=== PATIENT | female | born 1935 | race Caucasian/White ===

== ENCOUNTER 2020-06-12 15:04 | Outpatient (CLI) | payer MEDICARE ==
[2020-06-12 16:45] LABS: Hemoglobin 14.3 g/dL (12.0-15.5)
[2020-06-12 16:55] LABS: Anion Gap 11 mmol/L (10-20); BUN (Urea Nitrogen) 27 mg/dL (9.8-20.1); Calc. Creatinine Clearance 0 mL/min (70-130); Calcium 9.7 mg/dL (7.8-10.44); Carbon Dioxide 30 mmol/L (23-31); Chloride 102 mmol/L (98-107); Glucose 110 mg/dL (83-110); Potassium 3.9 mmol/L (3.5-5.1); Sodium 139 mmol/L (136-145)
[2020-06-12 16:59] LABS: Prothrombin Time 10.9 sec (9.5-12.1)
[2020-06-13 01:50] LABS: SARS-CoV-2 PCR by NAA Not Detected (NotDetected)
== END 2020-06-12 15:05 | disposition home or self-care (01) ==
LOC: CSHLAB 15:04
PROVIDERS: ATTEND Specialist
DX: Z01.812 Encounter for preprocedural laboratory examination (principal); Z20.822 Contact with and (suspected) exposure to COVID-19
CPT/HCPCS: 80048; 85014; 85018; 85610; 87635; 93005; 93010; U0003; U0005

== ENCOUNTER → 2020-06-17 | Day surgery (SDC) | payer MEDICARE ==
[~2020-06-17] MED LIST: CEFAZOLIN 1 GM VIAL ONE; Fentanyl 100 MCG/2 ML VIAL ONE; Gentamicin 80 MG/2 ML VIAL ONE; HYDROcodone/Acetaminophen 5/325 mg Tablet ONE; Lidocaine 1% (PF) 30 ML VIAL ONE; Midazolam HCl 2 mg/2 ml Vial ONE
== END ==
LOC: CSHSDC 06:22
PROVIDERS: ATTEND Specialist
DX: I49.5 Sick sinus syndrome (principal); R06.02 Shortness of breath
CPT/HCPCS: 33208; 71045; C1785; C1898 ×2; 99152; 99153; J0690; J1580; J2001; J2250; J3010

== ENCOUNTER 2021-08-28 14:17 | Observation (INO) | payer MEDICARE, OTHER ==
[2021-08-28 15:40] LABS: #Monocytes 1.6 10x3/uL (0.0-1.1); #Neutrophils 10.9 10x3/uL (1.5-8.4); %Basophils 0.3 % (0.0-2.0); %Eosinophils 0.2 % (0.0-6.0); %Lymphocytes 4.8 % (18.0-47.0); %Monocytes 11.7 % (0.0-10.0); %Neutrophils 82.5 % (40.0-75.0); Hemoglobin 14.3 g/dL (12.0-15.5); Mean Corpuscular HGB CONC 34.5 g/dL (32.0-36.0); Mean Corpuscular Hemoglobin 33.4 pg (27.0-33.0); Mean Corpuscular Volume 96.7 fl (81.6-98.3); Mean Platelet Volume 9.6 fl (7.4-10.4); Platelet Count 246 10x3/uL (150-450); RBC Distribution Width 13.2 % (11.5-14.5); Red Blood Cell (RBC) Count 4.28 10x6/uL (3.90-5.03); White Blood Cell (WBC) Count 13.2 10x3/uL (3.5-10.5)
[2021-08-28 15:50] LABS: ALT (SGPT) 30 U/L (8-55); AST (SGOT) 30 U/L (5-34); Albumin 4.1 g/dL (3.4-4.8); Alkaline Phosphatase 82 U/L (40-110); Anion Gap 14 mmol/L (10-20); BUN (Urea Nitrogen) 25 mg/dL (9.8-20.1); Bilirubin, Total 0.6 mg/dL (0.2-1.2); Calc. Creatinine Clearance 0 mL/min (70-130); Calcium 9.9 mg/dL (7.8-10.44); Carbon Dioxide 27 mmol/L (23-31); Chloride 98 mmol/L (98-107); Globulin 3.1 g/dL (2.4-3.5); Glucose 127 mg/dL (83-110); Potassium 3.7 mmol/L (3.5-5.1); Protein, Total 7.2 g/dL (5.8-8.1); Sodium 135 mmol/L (136-145)
[2021-08-28 17:18] LABS: Bilirubin Neg (Negative); Blood, Urine 10 (Negative); Clarity Clear (Clear); Glucose, Urine (Dipstick) Normal (Negative); Ketone, Urine 5 mg/dL (Negative); Leukocyte 100 (Negative); Nitrite Negative (Negative); Protein, Urine (Dipstick) 30 mg/dl (Neg-Trace); Specific Gravity, Urine 1.005 (1.002-1.036); Urobilinogen Normal mg/dL (Less than 2)
[2021-08-28] MEDS ORDERED: Ketorolac Tromethamine 30 MG/ML VIAL ONE (17:23)
[2021-08-28 17:25] LABS: Bacteria/HPF None Seen HPF (None Seen); RBC/HPF 0-3 HPF (0-3); Squamous Epithelial 0-3 HPF (0-3)
[2021-08-28] MEDS ORDERED: cefTRIAXone\\ROCEPHIN 1 GM VIAL ONE (17:57)
[2021-08-28 18:59] LABS: SARS-CoV-2 NAA Rapid Test Not Detected (NotDetected)
[2021-08-28] MEDS ORDERED: Apixaban 2.5 MG TAB PO SCH (21:30)
[2021-08-28 21:52] LABS: Magnesium 2.1 mg/dL (1.6-2.6)
[2021-08-28 21:58] LABS: Troponin I 0.014 ng/mL (< 0.028)
[2021-08-29 00:49] LABS: Troponin I 0.019 ng/mL (< 0.028)
[2021-08-29] MEDS ORDERED: Apixaban 5 MG TAB ONE ×2 (00:49→07:54)
[2021-08-29 03:24] LABS: #Monocytes 1.5 10x3/uL (0.0-1.1); #Neutrophils 8.5 10x3/uL (1.5-8.4); %Basophils 0.3 % (0.0-2.0); %Eosinophils 0.4 % (0.0-6.0); %Lymphocytes 6.3 % (18.0-47.0); %Monocytes 14.2 % (0.0-10.0); %Neutrophils 78.4 % (40.0-75.0); Hemoglobin 13.7 g/dL (12.0-15.5); Mean Corpuscular HGB CONC 34.5 g/dL (32.0-36.0); Mean Corpuscular Hemoglobin 32.7 pg (27.0-33.0); Mean Corpuscular Volume 94.7 fl (81.6-98.3); Mean Platelet Volume 9.5 fl (7.4-10.4); Platelet Count 237 10x3/uL (150-450); RBC Distribution Width 13.2 % (11.5-14.5); Red Blood Cell (RBC) Count 4.19 10x6/uL (3.90-5.03); White Blood Cell (WBC) Count 10.8 10x3/uL (3.5-10.5)
[2021-08-29 03:38] LABS: Anion Gap 17 mmol/L (10-20); BUN (Urea Nitrogen) 18 mg/dL (9.8-20.1); Calc. Creatinine Clearance 0 mL/min (70-130); Calcium 9.2 mg/dL (7.8-10.44); Carbon Dioxide 23 mmol/L (23-31); Chloride 101 mmol/L (98-107); Glucose 149 mg/dL (83-110); Potassium 3.7 mmol/L (3.5-5.1); Sodium 137 mmol/L (136-145)
[2021-08-29] MEDS ORDERED: Acetaminophen 325 MG TAB ONE (03:38)
[2021-08-29] MEDS ORDERED: Amlodipine 5 MG TAB ONE (07:55)
[2021-08-29 08:00] VITALS: BP 148/53; TEMP 98.4
[2021-08-29] MEDS ORDERED: Apixaban 2.5 MG TAB PO SCH (09:00)
[2021-08-29] MEDS ORDERED: Atenolol 25 MG TAB PO SCH (09:00)
[2021-08-29] MEDS ORDERED: Amlodipine 5 MG TAB PO SCH (09:00)
[2021-08-29] MEDS ORDERED: Amiodarone 200 MG TAB PO SCH (09:00)
[2021-08-29] MEDS ORDERED: Atorvastatin Calcium 10 MG TAB ONE (20:51)
[2021-08-29] MEDS ORDERED: Apixaban 2.5 MG TAB ONE (20:51)
[2021-08-29] MEDS ORDERED: Atorvastatin Calcium 10 MG TAB PO SCH (21:00)
[2021-08-30] MEDS ORDERED: Apixaban 5 MG TAB ONE (09:52)
[2021-08-30] MEDS ORDERED: Amlodipine 5 MG TAB ONE (09:52)
== END 2021-08-30 11:05 | disposition home or self-care (01) ==
LOC: CSHERS 14:17 → CSHERHOLD 08-29 00:51 → INTOOBSV 08-29 00:51
PROVIDERS: ADMIT Hospitalist; ATTEND Hospitalist
DX: R55 Syncope and collapse (principal); E78.5 Hyperlipidemia, unspecified; I73.9 Peripheral vascular disease, unspecified; I13.10 Hypertensive heart and chronic kidney disease without heart failure, with stage 1 through stage 4 chronic kidney disease, or unspecified chronic kidney disease; N18.9 Chronic kidney disease, unspecified; I48.0 Paroxysmal atrial fibrillation; S93.402A Sprain of unspecified ligament of left ankle, initial encounter; M81.0 Age-related osteoporosis without current pathological fracture; M16.12 Unilateral primary osteoarthritis, left hip; M47.9 Spondylosis, unspecified; I25.10 Atherosclerotic heart disease of native coronary artery without angina pectoris; I49.5 Sick sinus syndrome; I08.2 Rheumatic disorders of both aortic and tricuspid valves; Z87.891 Personal history of nicotine dependence; Z79.01 Long term (current) use of anticoagulants; Z79.899 Other long term (current) drug therapy; Z95.0 Presence of cardiac pacemaker; Z95.820 Peripheral vascular angioplasty status with implants and grafts; Z20.822 Contact with and (suspected) exposure to COVID-19; W18.39XA Other fall on same level, initial encounter; Y93.E1 Activity, personal bathing and showering
CPT/HCPCS: 70450; 71045; 72125; 72170; 73502; 73610; 80048; 80053; 83735; 84484 ×2; 85025 ×2; 87040; 87086; 93005; 93306; 96374; 96375; 97530; 99285; G0378 ×3; U0002; 36415; 81003; 81015; J0696; J1885